=== PATIENT | female | born 1980 | race African-American/Black ===

== ENCOUNTER 2017-05-22 12:45 | Emergency (ER) | payer OTHER ==
[~2017-05-22] VITALS: Ht 170.2 cm; Wt 119.3 kg
[~2017-05-22 12:45] MED LIST: NAPROSYN500 MG PO; PHENTERMINE HCL30 MG PO; ROBAXIN 750 MG750 M1 PO; TRAMADOL 50 MG50 MG PO
[2017-05-22] MEDS ORDERED: LIDODERM1 EACH TOP (13:27)
[2017-05-22] MEDS ORDERED: IBUPROFEN 800800 M1 PO (13:27)
[2017-05-22] MEDS ORDERED: NEURONTIN 300300 M1 PO (13:27)
[2017-05-22 13:36] VITALS: BP 141/93
== END 2017-05-22 13:37 | disposition home or self-care (01) ==
LOC: M.ERS 12:45
DX: M54.5 Low back pain (principal); Z88.8 Allergy status to other drugs, medicaments and biological substances